=== PATIENT | male | born 1940 | race Caucasian/White ===

== ENCOUNTER 2022-11-14 12:44 | Inpatient (IN) | payer MEDICARE, BC, SELFPAY ==
[2022-11-14] VITALS (22 sets, daily range): BP systolic 119–162; BP diastolic 67–87; PULSE 72–115; RESP 16–36; TEMP 36.4–38.8; O2SAT 95–100; BMI 31.6; BMI 35.2
--- NOTE | ~2022-11-14 | CT_ITS ---
EXAMINATION: CTA brain carotid DATE: 11/15/2022 11:51 INDICATION: Left hemiparesis. Encephalopathy. Headache. TECHNIQUE: Computed tomographic angiography (CTA) of the head was performed without and with 100 mL O mnipaque-350 intravenous contrast. CTA of the neck was performed with intravenous contrast. Automated exposure control and iterative reconstruction technique were employed. The dose-length product was 1 950.80 mGy-cm. Maximum intensity projection and volume rendered 3D-reconstructions were created by anali jackson technologist on a separate workstation. COMPARISON: Head CT 11/14/2022 FINDINGS: HEAD CTA: There are scattered areas of low attenuation in the cerebral white matter. There is no intr acranial hemorrhage, acute infarction, or abnormal intracranial mass lesion. The ventricles are filemon l in size. The orbits are normal. There is mucosal thickening in the paranasal sinuses. The mastoid a ir cells are normal. The vertebral arteries are codominant. There is no significant stenosis of basil ar artery or the posterior cerebral arteries. There is no significant stenosis of the intracranial in ternal carotid arteries or anterior or middle cerebral arteries. Anterior communicating artery is nor mal. Posterior communicating arteries are normal. There is no aneurysm. NECK CTA: There is elevation of left hemidiaphragm. There is mild atelectasis in the lungs. A calcifi ed left hilar lymph nodes are consistent with old granulomatous disease. There are no pathologically enlarged lymph nodes. There are nodules in the thyroid measuring up to 5 mm, likely not clinically si gnificant. There is no significant stenosis of the vertebral arteries. There is plaque in the proxima l internal carotid arteries. There is 9% stenosis of the proximal right internal carotid artery relat saritha to normal distal artery lumen diameter (NASCET criteria). There is 0% stenosis of the proximal le ft internal carotid artery relative to normal distal artery lumen diameter. There is severe cervical spondylosis. IMPRESSION: 1. Mild nonspecific cerebral white matter disease, which likely represents chronic small vessel ische bryan disease. 2. No aneurysm or significant intracranial arterial stenosis. 3. 9% stenosis of the proximal right internal carotid artery relative to normal distal artery lumen d iameter (NASCET criteria). 4. 0% stenosis of the proximal left internal carotid artery relative to normal distal artery lumen di ameter. Reviewed, dictated and finalized at location A. IMPRESSION: 1. Mild nonspecific cerebral white matter disease, which likely represents [place] small vessel ischemic disease. 2. No aneurysm or significant intracranial arterial stenosis. 3. 9% stenosis of the proximal right internal carotid artery relative to normal distal artery lumen diameter (NASCET criteria). 4. 0% stenosis of the proximal left internal carotid artery relative to normal distal artery lumen diameter.
--- NOTE | ~2022-11-14 | CT_ITS ---
EXAMINATION: CT brain wo con INDICATION: Headache COMPARISON: None TECHNIQUE: Standard unenhanced head CT. The dose-length product (DLP) was 1210.67 mGy-cm. The mA was adjusted according to patient size. Iterative reconstruction technique was employed. FINDINGS: No acute intraparenchymal hemorrhage. No evidence of mass lesion. No evidence of acute infa rction. A small area of encephalomalacia in the right occipital lobe is consistent with prior infarct . There is mild periventricular and subcortical hypodensity probably related to small vessel ischemic disease. There is mild prominence of the sulci and ventricles related to cerebral atrophy. Intracran ial calcified cerebral atherosclerosis is noted. No extra-axial collections. No mass effect or midlin e shift. The orbits and soft tissues are unremarkable. There is a polyp or mucous retention cyst of t he right sphenoid sinus. There is mild mucosal thickening of the ethmoidal air cells IMPRESSION: 1. No acute intracranial abnormality. 2. Age related findings. Reviewed, dictated and finalized at location A.
--- NOTE | ~2022-11-14 | XR_ITS ---
XR chest 1V 11/14/2022 13:43 Indication: Headache. History of CVA. Procedure: AP view of the chest Comparison: No prior studies for comparison. Findings: Elevated left diaphragm. Right basilar atelectasis. No focal pneumonia, edema, significant effusion or pneumothorax. There are postoperative changes of the right shoulder. Impression: 1: Right basilar atelectasis. 2: Elevated left diaphragm, suspicious for phrenic nerve paralysis. Reviewed, dictated and finalized at location L. Impression: 1: Right basilar atelectasis. 2: Elevated left diaphragm, suspicious for phrenic nerve paralysis.
--- NOTE | ~2022-11-14 | MR_ITS ---
EXAMINATION: MR brain/brain stem wo/w con DATE: 11/15/2022 11:17 INDICATION: Encephalopathy. TECHNIQUE: Magnetic resonance imaging (MRI) of the brain and brainstem was performed without and with 18 mL MultiHance intravenous contrast. COMPARISON: Head CT 11/14/2022 FINDINGS: There are scattered areas of nonspecific increased T2-weighted signal intensity in the cere bral white matter. There are old blood products in left thalamus and posterior limb left internal cap mary. There is no acute infarction or abnormal intracranial mass lesion. The ventricles are normal in size. The orbits are normal. There is mucosal thickening in the paranasal sinuses. The mastoid air c ells are normal. IMPRESSION: 1. Mild nonspecific cerebral white matter disease, which likely represents chronic small vessel ische bryan disease. 2. Old blood products in left thalamus and posterior limb left internal capsule. Reviewed, dictated and finalized at location A. IMPRESSION: 1. 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 2. Old blood products in left thalamus and posterior limb left internal capsule .
--- NOTE | 2022-11-14 13:02 | ECG_ITS ---
Measurements Intervals [place] Rate: 72 P: -3 MN: 172 QRS: 14 QRSD: 94 T: 46 QT: 392 QTc: 431 Interpretive Statements SINUS RHYTHM NO PREVIOUS ECG AVAILABLE FOR COMPARISON Electronically Signed On 11-14-2022 15:41:20 CDT by Ghislaine Robertson M.D.
[2022-11-14 13:16] LABS: Basophils Percent Auto 0.4 % (0.2-1.2); Eosinophils Absolute Auto 0.2 K/mm3 (0-0.3); Eosinophils Percent Auto 2.2 % (0-4.4); Hematocrit 35.7 % (42.0-52.0); Hemoglobin 11.8 g/dL (14.0-18.0); Immature Granulocyte Absolute 0.02 K/mm3 (0.00-0.031); Immature Granulocyte Percent A 0.2 % (0-0.5); Lymphocytes Absolute Auto 1.79 K/mm3 (0.9-3.2); Lymphocytes Percent Auto 19.4 % (18.3-44.2); Mean Corpuscular HGB Conc 33.1 g/dl (32-36); Mean Corpuscular Hemoglobin 28.2 pg (26-34); Mean Corpuscular Volume 85.4 fl (80-100); Mean Platelet Volume 11.4 fl (7.4-10.4); Monocytes Absolute Auto 0.7 K/mm3 (0.1-0.6); Monocytes Percent Auto 7.8 % (2.6-8.5); Neutrophils Absolute Auto 6.5 K/mm3 (1.3-6.7); Platelet Count Result 169 k/mm3 (150-375); Red Blood Count 4.18 M/mm3 (4.6-6.20); Red Cell Distribution Width 14.2 % (11.5-14.5); White Blood Count 9.2 K/mm3 (4.5-10.0)
[2022-11-14 13:29] LABS: INR 2.7
[2022-11-14 13:30] LABS: Partial Thromboplastin Time 38.4 SECONDS (22.3-36.8)
[2022-11-14 13:31] LABS: Alanine Aminotransferase 26 U/L (6-50); Albumin Level 3.9 g/dL (3.5-5.1); Alkaline Phosphatase 57 U/L (38-126); Anion Gap 4 mmol/L (8-16); Aspartate Amino Transferase 28 U/L (17-59); Bilirubin,Total 0.7 mg/dL (0.2-1.3); Blood Urea Nitrogen 19 mg/dL (9-20); Calcium 9.6 mg/dL (8.4-10.2); Carbon Dioxide 28 mmol/L (22-30); Chloride 97 mmol/L (98-107); Estimated CRCL calculation 65 ml/min; Estimated Glomerular Filt Rate > 60; Glucose 91 mg/dL (65-110); Potassium 4.1 mmol/L (3.4-5.0); Sodium 129 mmol/L (137-145)
[2022-11-14 13:42] LABS: Troponin I < 0.012 ng/mL (0.000-0.034)
[2022-11-14 15:10] LABS: Appearance Urine Clear (Clear); Bilirubin Urine Negative (Negative); Blood Urine Negative (Negative); Color Urine Yellow (Yellow); Glucose Urine UA Negative (Negative); Ketones Urine Negative (Negative); Leukocyte Esterase Ur Negative LEU/UL (Negative); Nitrate Urine Negative (Negative); Protein Urine Negative (Negative); Specific Grav Ur 1.012 (1.001-1.035)
[2022-11-14 15:14] LABS: Add Urine Microscopic? NO
[2022-11-14 15:35] LABS: Glucose Point of Care 99 mg/dl (65-105)
--- NOTE | 2022-11-14 16:15 | ED.GENADULT ---
HPI - General Adult General Chief complaint: Headache <Christian Gooden PA-C - Last Filed: 11/14/22 19:38> Stated complaint: bess <Christian Gooden PA-C - Last Filed: 11/14/22 19:38> Time Seen by Provider: 11/14/22 14:56 <Christian Gooden PA-C - Last Filed: 11/14/22 19:38> Source: patient and family <Christian Gooden PA-C - Last Filed: 11/14/22 19:38> Mode of arrival: EMS <Christian Gooden PA-C - Last Filed: 11/14/22 19:38> Limitations: altered mental status <Christian Gooden PA-C - Last Filed: 11/14/22 19:38> History of Present Illness HPI narrative: This is a an 82-year-old male with PMH of ICH, 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 [facility] According to family members who are present he was recently admitted there for encephalopathy and they thought it to be due to a severe UTI. Family states that he has been doing well with rehab and they last saw him normal last night. States he took his entire Levaquin course. They state that he has history of carotid stenosis but has not had any carotid endarterectomy. They state he last received an MRI last week at [facility] whenever this first event happened. They states today very similar and they were concerned for another infection. They state as he has been laying here in the bed he seems to be slowly improving but is more anxious/distracted/fidgeting. Family deny any speech changes, facial droop but they do think he seems to be somewhat confused right now. Patient reports that he has a headache. He states it is frontal in nature. He reports that had gradual onset but has not been getting any better. Denies any numbness or weakness. <Christian Gooden PA-C - Last Filed: 11/14/22 19:38> Related Data Home medications: Home Medications Medication Instructions Recorded Confirmed cholecalciferol (vitamin D3) 100 mcg PO DAILY 11/08/22 11/08/22 finasteride 5 mg tablet (Proscar) 5 mg PO HS 11/08/22 11/08/22 fluticasone propionate 50 2 spray intranasal DAILY 11/08/22 11/08/22 mcg/actuation nasal spray,suspension (Flonase Allergy Relief) furosemide 20 mg tablet 40 mg PO [id number] 11/08/22 11/08/22 metformin 500 mg tablet 1,000 mg PO BIDWM 11/08/22 11/08/22 tamsulosin 0.4 mg capsule 0.4 mg PO HS 11/08/22 11/08/22 warfarin 2 mg tablet 1.5 mg PO DAILY 11/08/22 11/08/22 <Christian Gooden PA-C - Last Filed: 11/14/22 19:38> Allergies/adverse reactions: Allergies Allergy/AdvReac Type Severity Reaction Status Date / Time amlodipine [From Lotrel] Allergy Severe Anaphylaxis Verified 11/30/20 12:42 benazepril [From Lotrel] Allergy Severe Anaphylaxis Verified 11/30/20 12:42 cefuroxime [From Ceftin] Allergy Mild Itching Verified 11/30/20 12:42 DOMINGO Inhibitors AdvReac Cough Verified 11/08/22 16:51 <Christian Gooden PA-C - Last Filed: 11/14/22 19:38> Review of Systems Review of Systems: All systems as dictated in HPI <Christian Gooden PA-C - Last Filed: 11/14/22 19:38> [facility] Past Medical History Medical History: Medical History (Updated 11/14/22 @ 19:11 by Christian Gooden PA-C) BPH (benign prostatic hyperplasia) DVT, bilateral lower limbs Dyslipidemia Hypertension Obstructive sleep apnea Presence of IVC filter Right hemiplegia <Christian Gooden PA-C - Last Filed: 11/14/22 19:38> Social History Social History: Social History (System 11/30/20 @ 12:42 by Leonarda Romo) Social History: patient lives with his in a 1 level home with a basement. Patient has 1 step to enter. is able to care for her . Patient has no adaptive devices. Smoking status: Never smoker Second hand tobacco smoke exposure: No Alcohol intake: never Substance use: never Substance use type: does not use Spiritual care concerns: No <Christian Gooden PA-C - Last Filed: 11/14/22 19:38> Exam Narrative: GENERAL: Well-appearing,
[2022-11-14] MEDS: MORPHINE SULFATE (*CRX) 4 MG/ML INJ 2 MG IV PUSH (16:31)
[2022-11-14] MEDS: SODIUM CHLORIDE 0.9% IV 1,000 ML 999 ML IV CONT (16:31)
[2022-11-14] MEDS: HALOPERIDOL LACTATE 5 MG/ML VIAL 2 MG IM (19:35)
[2022-11-14] MEDS: OLANZapine 5 MG, WATER, STERILE FOR INJECTION 2.1 ML IM (20:24)
[2022-11-14] MEDS: SODIUM CHLORIDE 0.9% IV 1,000 ML 75 ML IV CONT (20:34)
[2022-11-14 20:56] LABS: Influenza A QL RT-PCR Negative (Negative); Influenza B QL RT-PCR Negative (Negative); RSV RNA, RT-PCR Negative (Negative); SARS-CoV-2 RNA PCR Negative (Negative)
--- NOTE | 2022-11-14 21:17 | ADMGEN ---
This patient, Jerrod Miles, was admitted to Medical Room 255-. Patient/family oriented to hospital policies and general routines including ID bracelet, bed and alarms, visiting hours, pain management, procedures, bathroom and other care routines, personal items, smoking policy, room service/diet, and visiting hours. Information on how to activate the Rapid Response Team has been discussed. Patient/Family are encouraged to report perceived risks to care and to ask questions if they do not understand what they are told or what they should do.
[2022-11-15] VITALS (13 sets, daily range): BP systolic 123–143; BP diastolic 55–64; PULSE 59–98; RESP 16–21; TEMP 36.1–36.8; O2SAT 94–100
--- NOTE | 2022-11-15 00:07 | PM.IMHP ---
H&P: HPI History of Present Illness Date/Time: 11/15/22 00:07 Chief Complaint: Altered mental status Narrative: This is an 82-year-old male with past medical history significant for dyslipidemia, atrial fibrillation, rate controlled anticoagulated, type 2 diabetes mellitus, DVT, benign prostatic hyperplasia, IVC filter, right hemiplegia, obstructive sleep apnea patient comes from [facility] sent over due to altered mental status most of the history has been obtained upon reviewing medical records patient is obtunded and confused unable to give any history that is meaningful or contributing to current disease process. According to records had concluded course of Levaquin and recent history of intracranial hemorrhage. Preliminary workup was significant for sodium of 129. EXAMINATION: CT brain wo con ? INDICATION: Headache ? COMPARISON: None TECHNIQUE: Standard unenhanced head CT. The dose-length product (DLP) was 1210.67 mGy-cm. The mA was adjusted according to patient size. Iterative reconstruction technique was employed. ? FINDINGS: No acute intraparenchymal hemorrhage. No evidence of mass lesion. No evidence of acute infarction. A small area of encephalomalacia in the right occipital lobe is consistent with prior infarct. There is mild periventricular and subcortical hypodensity probably related to small vessel ischemic disease. There is mild prominence of the sulci and ventricles related to cerebral atrophy. Intracranial calcified cerebral atherosclerosis is noted. No extra-axial collections. No mass effect or midline shift. The orbits and soft tissues are unremarkable. There is a polyp or mucous retention cyst of the right sphenoid sinus. There is mild mucosal thickening of the ethmoidal air cells IMPRESSION: 1. No acute intracranial abnormality. 2. Age related findings. XR chest 1V 11/14/2022 13:43 Indication: Headache. History of CVA. Procedure: AP view of the chest Comparison: No prior studies for comparison. Findings: Elevated left diaphragm. Right basilar atelectasis. No focal pneumonia, edema, significant effusion or pneumothorax. There are postoperative changes of the right shoulder. Impression: 1: Right basilar atelectasis. 2: Elevated left diaphragm, suspicious for phrenic nerve paralysis. Review of Systems Review of Systems: ROS unobtainable: Yes unobtainable due to mental status ( obtundation) [facility] Past Medical History Medical History BPH (benign prostatic hyperplasia) DVT, bilateral lower limbs Dyslipidemia Hypertension Obesity Obstructive sleep apnea Presence of IVC filter Right hemiplegia Social History Social History Social History: patient lives with his in a 1 level home with a basement. Patient has 1 step to enter. is able to care for her . Patient has no adaptive devices. Smoking status: Never smoker Second hand tobacco smoke exposure: No Alcohol intake: never Substance use: former Substance use type: does not use Lack of Transportation: No Lack of Food: Never True Current Housing: I Have Housing Concerned About Future Housing: No Difficulty Paying Gas/Electric Bills: No Difficulty Paying for Meds: No Currently Unemployed: No Education: High School Diploma/GED Difficulty w/ Childcare or Family Care: No Spiritual care concerns: Yes Meds Home Medications and Allergies Home Medications Medication Instructions Recorded Confirmed Type metoprolol tartrate 50 mg tablet 50 mg PO Q12HR #60 tabs 12/05/20 11/14/22 Rx multivitamin with folic acid 400 1 tablet PO QAM #0 tabs 12/05/20 11/14/22 Rx mcg tablet (Thera) cholecalciferol (vitamin D3) 5,000 units PO DAILY 11/08/22 11/14/22 History finasteride 5 mg tablet (Proscar) 5 mg PO HS 11/08/22 11/14/22 History fluticasone propionate 50 2 spray intranasa
[2022-11-15 05:31] LABS: Basophils Percent Auto 0.6 % (0.2-1.2); Eosinophils Absolute Auto 0.1 K/mm3 (0-0.3); Hematocrit 31.2 % (42.0-52.0); Hemoglobin 10.5 g/dL (14.0-18.0); Immature Granulocyte Absolute 0.01 K/mm3 (0.00-0.031); Immature Granulocyte Percent A 0.1 % (0-0.5); Lymphocytes Absolute Auto 2.15 K/mm3 (0.9-3.2); Lymphocytes Percent Auto 31.3 % (18.3-44.2); Mean Corpuscular HGB Conc 33.7 g/dl (32-36); Mean Corpuscular Hemoglobin 28.3 pg (26-34); Mean Corpuscular Volume 84.1 fl (80-100); Mean Platelet Volume 11.3 fl (7.4-10.4); Monocytes Absolute Auto 0.9 K/mm3 (0.1-0.6); Monocytes Percent Auto 13.2 % (2.6-8.5); Neutrophils Absolute Auto 3.6 K/mm3 (1.3-6.7); Neutrophils Percent Auto 52.8 % (45.5-73.1); Platelet Count Result 163 k/mm3 (150-375); Red Blood Count 3.71 M/mm3 (4.6-6.20); Red Cell Distribution Width 14.2 % (11.5-14.5); White Blood Count 6.9 K/mm3 (4.5-10.0)
[2022-11-15 05:38] LABS: Anion Gap 3 mmol/L (8-16); Blood Urea Nitrogen 15 mg/dL (9-20); Calcium 8.7 mg/dL (8.4-10.2); Carbon Dioxide 28 mmol/L (22-30); Chloride 101 mmol/L (98-107); Estimated CRCL calculation 67 ml/min; Estimated Glomerular Filt Rate > 60; Glucose 97 mg/dL (65-110); Potassium 3.3 mmol/L (3.4-5.0); Sodium 132 mmol/L (137-145)
--- NOTE | 2022-11-15 06:18 | PC.NURSE ---
reviewed and agree with all charting and documentation by trell chin
[2022-11-15 08:48] LABS: Glucose Point of Care 84 mg/dl (65-105)
--- NOTE | 2022-11-15 09:00 | P.PNIM_ITS ---
Progress Note: A&P Assessment and Plan (1) Acute metabolic encephalopathy: Code(s): G93.41 - Metabolic encephalopathy Status: Acute Assessment and Plan: * Presented to the ED from rehab for acute confusion and encephalopathy * Recently treated for UTI with levaquin which has been completed * CT of the brain no acute finding * CTA of the brain 9% of the right and 0% of the left, no intracranial findings * MRI of the brain old blood products in left thalamus and posterior limb left internal capsule * UA appears non infectious * Notable fever, tachycardia, and tachypnea * WBC stable 6.9 * Neuro consulted * LP ordered most likely for tomorrow with INR of 2.8. Coumadin on hold * Acyclovir ordered (2) Presence of IVC filter: Code(s): Z95.828 - Presence of other vascular implants and grafts Status: Acute Assessment and Plan: * Present since ICH noted about 2 years ago * Noted to still have multiple clots in the bilateral lower extremities * Continue Coumadin for now (3) Hyponatremia: Code(s): E87.1 - Hypo-osmolality and hyponatremia Status: Acute Assessment and Plan: * Na 129 upon arrival * Currently 132 * Could be contributing to the encephalopathy * Continue IV fluids for now * Continue to trend (4) Obstructive sleep apnea: Code(s): G47.33 - Obstructive sleep apnea (adult) (pediatric) Status: Acute Assessment and Plan: * Continue home CPAP with home setting (5) Diabetes: Qualifiers: Diabetes mellitus complication status: without complication Diabetes mellitus penitentiary insulin use: without ad terminal makeup operator use Diabetes mellitus type: type 2 Qualified Code(s): E11.9 - Type 2 diabetes mellitus without complications Code(s): E11.9 - Type 2 diabetes mellitus without complications Status: Acute Assessment and Plan: * Current glucose 97 * accu cheks AC/HS * ISS * Continue to trend glucose * stable * Adjust therapy as indicated (6) Hypertension: Qualifiers: Hypertension type: primary hypertension Qualified Code(s): I10 - Essential (primary) hypertension Code(s): I10 - Essential (primary) hypertension Status: Acute Assessment and Plan: * BP is 143/55 * Continue home metoprolol * Lasix currently on hold * trend BP * adjust therapy as indicated (7) BPH (benign prostatic hyperplasia): Qualifiers: Lower urinary tract symptom presence: symptoms absent Qualified Code(s): N40.0 - Benign prostatic hyperplasia without lower urinary tract symptoms Code(s): N40.0 - Benign prostatic hyperplasia without lower urinary tract symptoms Status: Acute Assessment and Plan: * Continue home tamsulosin * trend urine output * Stable (8) SIRS (systemic inflammatory response syndrome): Code(s): R65.10 - Systemic inflammatory response syndrome (SIRS) of non-infectious origin without acute organ dysfunction Status: Acute Assessment and Plan: * Fevers noted 101.4, tachycardia 100-115, tachypnea 20s * blood cultures ordered * UA appears non infectious * IV fluids continued * Trend vital sign (9) Afib: Qualifiers: Atrial fibri
--- NOTE | 2022-11-15 09:00 | PM.IMPN ---
Progress Note: A&P Assessment and Plan (1) Acute metabolic encephalopathy: Code(s): G93.41 - Metabolic encephalopathy Status: Acute Assessment and Plan: Presented to the ED from rehab for acute confusion and encephalopathy Recently treated for UTI with levaquin which has been completed CT of the brain no acute finding CTA of the brain 9% of the right and 0% of the left, no intracranial findings MRI of the brain old blood products in left thalamus and posterior limb left internal capsule UA appears non infectious Notable fever, tachycardia, and tachypnea WBC stable 6.9 Neuro consulted LP ordered most likely for tomorrow with INR of 2.8. Coumadin on hold Acyclovir ordered (2) Presence of IVC filter: Code(s): Z95.828 - Presence of other vascular implants and grafts Status: Acute Assessment and Plan: Present since ICH noted about 2 years ago Noted to still have multiple clots in the bilateral lower extremities Continue Coumadin for now (3) Hyponatremia: Code(s): E87.1 - Hypo-osmolality and hyponatremia Status: Acute Assessment and Plan: Na 129 upon arrival Currently 132 Could be contributing to the encephalopathy Continue IV fluids for now Continue to trend (4) Obstructive sleep apnea: Code(s): G47.33 - Obstructive sleep apnea (adult) (pediatric) Status: Acute Assessment and Plan: Continue home CPAP with home setting (5) Diabetes: Qualifiers: Diabetes mellitus complication status: without complication 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 intermediate use Diabetes mellitus type: type 2 Qualified Code(s): E11.9 - Type 2 diabetes mellitus without complications Code(s): E11.9 - Type 2 diabetes mellitus without complications Status: Acute Assessment and Plan: Current glucose 97 accu cheks AC/HS ISS Continue to trend glucose stable Adjust therapy as indicated (6) Hypertension: Qualifiers: Hypertension type: primary hypertension Qualified Code(s): I10 - Essential (primary) hypertension Code(s): I10 - Essential (primary) hypertension Status: Acute Assessment and Plan: BP is 143/55 Continue home metoprolol Lasix currently on hold trend BP adjust therapy as indicated (7) BPH (benign prostatic hyperplasia): Qualifiers: Lower urinary tract symptom presence: symptoms absent Qualified Code(s): N40.0 - Benign prostatic hyperplasia without lower urinary tract symptoms Code(s): N40.0 - Benign prostatic hyperplasia without lower urinary tract symptoms Status: Acute Assessment and Plan: Continue home tamsulosin trend urine output Stable (8) SIRS (systemic inflammatory response syndrome): Code(s): R65.10 - Systemic inflammatory response syndrome (SIRS) of non-infectious origin without acute organ dysfunction Status: Acute Assessment and Plan: Fevers noted 101.4, tachycardia 100-115, tachypnea 20s blood cultures ordered UA appears non infectious IV fluids continued Trend vital sign (9) Afib: Qualifiers: Atrial fibrillation type: unspecified chronic Qualified Code(s): I48.20 - Chronic atrial fibrillation, unspecified Code(s): I48.91 - Unspecified atrial fibrillation Status: Acute Assessment and Plan: Currently in afib Rate is controlled Continue metoprolol Hold Coumadin for now to get LP in the am Tele monitor continued Time Spent With Patient Time: 56 minutes total patient care 36 minutes spent with family Time with patient: Greater than 35 minutes Subjective Date/time seen: 11/15/22899 Interval history: 11/15/22899 Patient is currently lying in bed. Patient is alert oriented x3. Family wa
--- NOTE | 2022-11-15 09:03 | WPDNEURCNPN ---
Assessment and Plan Assessment and plan (1) Encephalopathy: Code(s): G93.40 - Encephalopathy, unspecified Status: Acute (2) SIRS (systemic inflammatory response syndrome): Code(s): R65.10 - Systemic inflammatory response syndrome (SIRS) of non-infectious origin without acute organ dysfunction Status: Acute (3) Carotid arterial disease: Code(s): I77.9 - Disorder of arteries and arterioles, unspecified Status: Acute (4) Hypertension: Qualifiers: Hypertension type: primary hypertension Qualified Code(s): I10 - Essential (primary) hypertension Code(s): I10 - Essential (primary) hypertension Status: Acute (5) Dyslipidemia: Code(s): E78.5 - Hyperlipidemia, unspecified Status: Acute (6) Diabetes: Qualifiers: Diabetes mellitus complication status: without complication Diabetes mellitus long-term insulin use: without exterminator helper termite use Diabetes mellitus type: type 2 Qualified Code(s): E11.9 - Type 2 diabetes mellitus without complications Code(s): E11.9 - Type 2 diabetes mellitus without complications Status: Acute Plan Jerrod Miles is a 82 year old male with a history of HTN, HLD, DVT with IVC filter, on warfarin presenting from rehab for altered mental status. Also with headache and fever. There is no obvious cause of the fever. Therefore, will need to evaluate for meningitis/encephalitis. MRI brain negative for acute stroke. - Start empiric acyclovir and antibiotics (ampicillin, vancomycin, ceftriaxone) - Recommend LP with CSF studies (please include HSV PCR) when able Consult date: 11/15/22 Reason for consult: altered mental status HPI: Jerrod Miles is a 82 year old male with a history of HTN, HLD, DVT with IVC filter, on warfarin presenting from rehab for altered mental status. Patient was recently admitted to [place] for UTI and was treated with Levaquin. While at rehab, he started complaining of headache on the day of presentation and was notably confused. He was easily distracted and appeared to have difficulty with coordination. CT head was unrevealing. Lab work was significant for hyponatremia of 129, and UA was unrevealing. INR is therapeutic. Patient did develop a fever during admission, up to 101.8. Blood cultures were obtained. He is not currently on any antibiotics. MRI brain has been done, the report is pending. Patient's INR is 2.8 today so he cannot have LP done yet. Warfarin being held by hospitalist team. Plan to start empiric antibiotics and acyclovir. He received a dose of Ativan for the imaging. Review of Systems Review of Systems: ROS unobtainable: Yes unobtainable due to medical condition and unobtainable due to mental status PMFSH Past Medical History Medical History BPH (benign prostatic hyperplasia) DVT, bilateral lower limbs Dyslipidemia Hypertension Obesity Obstructive sleep apnea Presence of IVC filter Right hemiplegia Social History Social History Social History: patient lives with his in a 1 level home with a basement. Patient has 1 step to enter. is able to care for her . Patient has no adaptive devices. Smoking status: Never smoker Second hand tobacco smoke exposure: No Alcohol intake: never Substance use: former Substance use type: does not use Lack of Transportation: No Lack of Food: Never True Current Housing: I Have Housing Concerned About Future Housing: No Difficulty Paying Gas/Electric Bills: No Difficulty Paying for Meds: No Currently Unemployed: No Education: High School Diploma/GED Difficulty w/ Childcare or Family Care: No Spiritual care concerns: Yes Meds Home Medications and Allergies Home Medications Medication Instructions Recorded Confirmed Type metoprolol tartrate 50 mg tablet 50 mg PO Q12HR #60 ta
[2022-11-15] MEDS: CHOLECALCIFEROL 1,000 UNITS TABLET 5000 UNITS PO (09:45)
[2022-11-15] MEDS: METOPROLOL TARTRATE 50 MG TAB PO ×2 (09:45→20:40)
[2022-11-15] MEDS: TAMSULOSIN HCL 0.4 MG CAPSULE PO (09:45)
[2022-11-15] MEDS: POTASSIUM CHLORIDE 20 MEQ ER TABLET 40 MEQ PO (09:45)
[2022-11-15] MEDS: FLUTICASONE PROPIONATE 0.05% NA SPR 16 GM BTL (*BKC) 2 SPRAY NASAL (09:46)
[2022-11-15] MEDS: LORazepam INJ (*CRX) 2 MG/ML VIAL 0.5 MG IV PUSH (10:28)
[2022-11-15 12:02] LABS: Glucose Point of Care 126 mg/dl (65-105)
[2022-11-15] MEDS: ACYCLOVIR SODIUM IVPB 900 MG in DEXTROSE 5% IN WATER 250 ML 268 MG IVPB (12:04)
[2022-11-15] MEDS: AMPICILLIN 2 GM/NS 100 ML 2 GM/100 ML BAG IVPB ×2 (14:11→20:44)
[2022-11-15] MEDS: cefTRIAXone 2 GM/NS 100 ML 2 GM/100 ML BAG IVPB (14:43)
[2022-11-15] MEDS: VANCOMYCIN 1,250 MG/NS 250 ML 1,250 MG/250 ML BAG 166.67 MG IVPB (15:14)
[2022-11-15 17:12] LABS: Glucose Point of Care 164 mg/dl (65-105)
[2022-11-15] MEDS: VANCOMYCIN 1,000 MG/NS 250 ML 1,000 MG/250 ML BAG 250 MG IVPB (17:38)
[2022-11-15] MEDS: FINASTERIDE 5 MG TABLET PO (20:40)
[2022-11-15 21:35] LABS: Glucose Point of Care 125 mg/dl (65-105)
[2022-11-16] VITALS (11 sets, daily range): BP systolic 138–148; BP diastolic 55–83; PULSE 67–88; RESP 16–18; TEMP 36.3–36.9; O2SAT 95–100
[2022-11-16] MEDS: AMPICILLIN 2 GM/NS 100 ML 2 GM/100 ML BAG IVPB ×6 (00:49→19:59)
[2022-11-16] MEDS: cefTRIAXone 2 GM/NS 100 ML 2 GM/100 ML BAG IVPB ×2 (01:20→14:36)
--- NOTE | 2022-11-16 05:41 | PCRCNOTE ---
Unable to get a sputum sample after given pt 3% sodium chloride. Pt has a strong nonproductive cough
[2022-11-16 06:07] LABS: Basophils Percent Auto 0.4 % (0.2-1.2); Eosinophils Absolute Auto 0.3 K/mm3 (0-0.3); Eosinophils Percent Auto 4.4 % (0-4.4); Hematocrit 33.4 % (42.0-52.0); Hemoglobin 11.1 g/dL (14.0-18.0); Immature Granulocyte Absolute 0.02 K/mm3 (0.00-0.031); Immature Granulocyte Percent A 0.3 % (0-0.5); Lymphocytes Absolute Auto 1.45 K/mm3 (0.9-3.2); Lymphocytes Percent Auto 19.5 % (18.3-44.2); Mean Corpuscular HGB Conc 33.2 g/dl (32-36); Mean Corpuscular Volume 84.1 fl (80-100); Mean Platelet Volume 11.5 fl (7.4-10.4); Monocytes Absolute Auto 0.8 K/mm3 (0.1-0.6); Monocytes Percent Auto 10.1 % (2.6-8.5); Neutrophils Absolute Auto 4.9 K/mm3 (1.3-6.7); Neutrophils Percent Auto 65.3 % (45.5-73.1); Platelet Count Result 168 k/mm3 (150-375); Red Blood Count 3.97 M/mm3 (4.6-6.20); Red Cell Distribution Width 14.3 % (11.5-14.5); White Blood Count 7.4 K/mm3 (4.5-10.0)
[2022-11-16 06:17] LABS: INR 2.6; Prothrombin Time 29.8 Seconds (11.1-14.7)
[2022-11-16 06:21] LABS: Alanine Aminotransferase 23 U/L (6-50); Albumin Level 3.2 g/dL (3.5-5.1); Alkaline Phosphatase 49 U/L (38-126); Anion Gap 3 mmol/L (8-16); Aspartate Amino Transferase 29 U/L (17-59); Bilirubin,Total 0.6 mg/dL (0.2-1.3); Blood Urea Nitrogen 13 mg/dL (9-20); Calcium 8.8 mg/dL (8.4-10.2); Carbon Dioxide 26 mmol/L (22-30); Chloride 103 mmol/L (98-107); Estimated CRCL calculation 67 ml/min; Estimated Glomerular Filt Rate > 60; Glucose 123 mg/dL (65-110); Magnesium 1.6 mg/dL (1.6-2.3); Potassium 3.3 mmol/L (3.4-5.0); Sodium 132 mmol/L (137-145)
[2022-11-16] MEDS: CHOLECALCIFEROL 1,000 UNITS TABLET 5000 UNITS PO (08:25)
[2022-11-16] MEDS: TAMSULOSIN HCL 0.4 MG CAPSULE PO (08:25)
[2022-11-16] MEDS: METOPROLOL TARTRATE 50 MG TAB PO ×2 (08:25→20:00)
[2022-11-16 09:03] LABS: Glucose Point of Care 112 mg/dl (65-105)
[2022-11-16 12:04] LABS: Glucose Point of Care 204 mg/dl (65-105)
--- NOTE | 2022-11-16 12:21 | PM.IMPN ---
Progress Note: A&P Assessment and Plan (1) Encephalopathy: Code(s): G93.40 - Encephalopathy, unspecified Status: Acute Assessment and Plan: Etiology unclear: Drug vs infection. TIA or seizure much less likely. 11/16/22: Dramatic improvement on acyclovir, vancomycin, ceftriaxone, ampicillin. Discussed with patient and family at bedside. 11/16/22: INR 2.6 is too high to perform LP. Discussed possible switch to Eliquis post procedure. (2) Presence of IVC filter: Code(s): Z95.828 - Presence of other vascular implants and grafts Status: Acute Assessment and Plan: Continue to monitor (3) Hyponatremia: Code(s): E87.1 - Hypo-osmolality and hyponatremia Status: Acute Assessment and Plan: 11/14/22: 129, 11/16/22: 132 Continue to hold furosemide (4) Right hemiplegia: Code(s): G81.91 - Hemiplegia, unspecified affecting right dominant side Status: Acute Assessment and Plan: PT/OT (5) DVT, bilateral lower limbs: Code(s): I82.403 - Acute embolism and thrombosis of unspecified deep veins of lower extremity, bilateral Status: Acute Assessment and Plan: Warfarin on hold for possible LP (6) Obstructive sleep apnea: Code(s): G47.33 - Obstructive sleep apnea (adult) (pediatric) Status: Acute Assessment and Plan: Continue CPAP (7) Diabetes: Qualifiers: Diabetes mellitus type: type 2 Diabetes mellitus wall worker insulin use: without wall worker use Diabetes mellitus complication status: without complication Qualified Code(s): E11.9 - Type 2 diabetes mellitus without complications Code(s): E11.9 - Type 2 diabetes mellitus without complications Status: Acute Assessment and Plan: 11/16/22: Resumed metformin and initiated SSI. (8) Hypertension: Qualifiers: Hypertension type: primary hypertension Qualified Code(s): I10 - Essential (primary) hypertension Code(s): I10 - Essential (primary) hypertension Status: Acute Assessment and Plan: Monitor BP off furosemide 11/16/22 controlled (9) Lymphedema: Code(s): I89.0 - Lymphedema, not elsewhere classified Status: Acute Assessment and Plan: Compression stockings to LE's (10) BPH (benign prostatic hyperplasia): Qualifiers: Lower urinary tract symptom presence: symptoms absent Qualified Code(s): N40.0 - Benign prostatic hyperplasia without lower urinary tract symptoms Code(s): N40.0 - Benign prostatic hyperplasia without lower urinary tract symptoms Status: Acute Assessment and Plan: Continue tamsulosin Subjective Date/time seen: 11/16/22 12:21 Interval history: Much more alert and feeling much better today. Tolerated diet. Denied chest pain, shortness of breath, headache, abdominal pain, extremity pain, dizziness, abnormal bleeding, focal weakness. Exam Narrative: HEENT: EOMI, PERRL, sclerae nonicteric, pharyngeal mucosa pink and intact NECK: No JVD, adenopathy, or thyromegaly. Supple. CHEST: Clear to auscultation. Normal effort. HEART: NL S1/S2, regular, no murmur ABDOMEN: BS+, soft, nontender, no mass, no bruits EXTREMITIES: No cyanosis, edema, or clubbing NEUROLOGIC: CN intact and symmetric to inspection. DTRs intact at biceps triceps knees, trace at ankles, Babinski's downgoing. [id number] intact. MUSCULOSKELETAL: Tone and strength symmetric 4/5 bit and shank department supervisor dorsiflexion and plantar flexion. PSYCH: Alert. Oriented to person, place, and time. Objective Data Vital Signs Vital Signs: Vital Signs - 24 hr 11/15/22 14:00 11/15/22 16:00 11/15/22 17:48 Temperature 97.6 F Pulse Rate 64 59 L 80 Respiratory Rate 16 Blood Pressure 123/60 Pulse Oximetry 100 Oxygen Delivery 11/15/22 19:46 11/15/22 20:40 11/15/22 20:30 Temperature 98.2 F Pulse Rate 68 68 Respiratory Rate 20 Blood Pressure 135/64 Pulse Oximetry 97 Oxygen Delivery
[2022-11-16] MEDS: INSULIN ASPART (*BKC) 100 UNITS/ML SUB-Q (12:30)
[2022-11-16] MEDS: metFORMIN HCL 500 MG TABLET 1000 MG PO (17:01)
[2022-11-16 17:07] LABS: Glucose Point of Care 115 mg/dl (65-105)
[2022-11-16] MEDS: FINASTERIDE 5 MG TABLET PO (20:00)
[2022-11-16] MEDS: THERAPEUTIC MULTIVITAMINS/MINERALS TAB (*BKC) 1 TABLET PO (20:00)
[2022-11-17] VITALS (15 sets, daily range): BP systolic 144–166; BP diastolic 64–76; PULSE 68–104; RESP 16–18; TEMP 36.5–36.7; O2SAT 98–100
[2022-11-17] MEDS: AMPICILLIN 2 GM/NS 100 ML 2 GM/100 ML BAG IVPB ×6 (00:36→20:47)
[2022-11-17] MEDS: cefTRIAXone 2 GM/NS 100 ML 2 GM/100 ML BAG IVPB ×2 (01:20→15:26)
[2022-11-17 03:02] LABS: Hemoglobin 10.9 g/dL (14.0-18.0); Mean Corpuscular HGB Conc 34.1 g/dl (32-36); Mean Corpuscular Hemoglobin 28.4 pg (26-34); Mean Corpuscular Volume 83.3 fl (80-100); Mean Platelet Volume 11.2 fl (7.4-10.4); Platelet Count Result 169 k/mm3 (150-375); Red Blood Count 3.84 M/mm3 (4.6-6.20); Red Cell Distribution Width 14.2 % (11.5-14.5); White Blood Count 7.2 K/mm3 (4.5-10.0)
[2022-11-17 03:07] LABS: Anion Gap 3 mmol/L (8-16); Blood Urea Nitrogen 12 mg/dL (9-20); Carbon Dioxide 27 mmol/L (22-30); Chloride 105 mmol/L (98-107); Estimated CRCL calculation 67 ml/min; Estimated Glomerular Filt Rate > 60; Glucose 110 mg/dL (65-110); Potassium 3.3 mmol/L (3.4-5.0); Sodium 135 mmol/L (137-145)
[2022-11-17 03:55] LABS: Vancomycin Trough 10.9 ug/mL (10.0-20.0)
[2022-11-17] MEDS: SODIUM CHLOR 3% 15 ML NEB (RESPIRATORY THERAPY) 6 ML INHALATION (04:55)
[2022-11-17 08:12] LABS: Glucose Point of Care 145 mg/dl (65-105)
[2022-11-17] MEDS: metFORMIN HCL 500 MG TABLET 1000 MG PO ×2 (08:58→18:26)
[2022-11-17] MEDS: POTASSIUM CHLORIDE 20 MEQ ER TABLET 40 MEQ PO (08:58)
[2022-11-17] MEDS: METOPROLOL TARTRATE 50 MG TAB PO ×2 (08:59→20:46)
[2022-11-17] MEDS: TAMSULOSIN HCL 0.4 MG CAPSULE PO (08:59)
[2022-11-17] MEDS: CHOLECALCIFEROL 1,000 UNITS TABLET 5000 UNITS PO (08:59)
[2022-11-17] MEDS: FLUTICASONE PROPIONATE 0.05% NA SPR 16 GM BTL (*BKC) 2 SPRAY NASAL (08:59)
[2022-11-17] MEDS: ATORVASTATIN 40 MG TABLET PO (08:59)
--- NOTE | 2022-11-17 11:30 | WPDNEUROPN ---
Subjective Date/time seen: 11/17/22 11:30 Interval history: 82 years old with history of hypertension, hyperlipidemia, DVT, with IVC filter, on Coumadin transferred to the hospital for from rehab for change in mental status along with the headache and fever, initially seen by Dr. Hendricks, her notes reviewed ,patient is being treated for the possibility of meningitis encephalitis, INR is still above normal range ,spinal tap itself is at present not done but empiric treatment with the acyclovir and antibiotic has already been started, on examination today he is awake alert he recognized this particular physician as well I have seen him previously, the and the son in the room he followed the instructions fairly well and there is no changes in the neurological status treatment is being continued as such is still the INR is above the normal range and spinal fluid studies have not been carried out. Treatment is being carried out as such Objective Data Vital Signs Vital Signs: Vital Signs - 24 hr 11/16/22 12:00 11/16/22 13:19 11/16/22 14:21 Temperature 36.9 C Pulse Rate 68 75 Respiratory Rate 18 Blood Pressure 146/55 H Pulse Oximetry 100 Oxygen Delivery Room Air 11/16/22 16:00 11/16/22 19:20 11/16/22 20:00 Temperature 36.6 C Pulse Rate 71 77 88 Respiratory Rate 16 Blood Pressure 138/62 Pulse Oximetry 98 Oxygen Delivery 11/16/22 20:57 11/16/22 20:00 11/16/22 20:00 Temperature Pulse Rate 80 80 Respiratory Rate 16 Blood Pressure Pulse Oximetry 98 Oxygen Delivery CPAP CPAP 11/17/22 00:00 11/17/22 04:00 11/17/22 04:55 Temperature Pulse Rate 80 104 H Respiratory Rate 18 Blood Pressure Pulse Oximetry Oxygen Delivery 11/17/22 05:03 11/17/22 05:13 11/17/22 08:59 Temperature 36.5 C Pulse Rate 96 78 Respiratory Rate 18 16 Blood Pressure 147/73 H Pulse Oximetry 99 Oxygen Delivery 11/17/22 09:03 Temperature Pulse Rate 78 Respiratory Rate 16 Blood Pressure 144/64 H Pulse Oximetry 99 Oxygen Delivery Intake/Output Intake/Output: Intake & Output 11/14/22 11/15/22 11/16/22 11/17/22 23:59 23:59 23:59 23:59 Intake Total 1000 2667 1892 664 Output Total 20245 525 Balance 1000 642 867 139 Meds/Results Medications: Active Medications Generic Name Dose Route Start Last Admin Trade Name Freq PRN Reason Stop Dose Admin Acetaminophen 650 mg 11/14/22 19:05 Acetaminophen 325 Mg Tablet PO Q4H PRN Mild Pain (1-3) or Fever Atorvastatin Calcium 40 mg 11/17/22 09:00 11/17/22 08:59 Atorvastatin 40 Mg Tablet PO 40 mg DAILY ARNULFO Administration Dextrose 12.5 gm 11/16/22 12:15 Dextrose 50% 25 Gm/50 Ml Syringe IV PUSH PRN PRN Hypoglycemia Protocol Diphenhydramine HCl 50 mg 11/15/22 12:23 Diphenhydramine Hcl Inj 50 Mg/Ml Vial IV PUSH Q4H PRN Itching Finasteride 5 mg 11/15/22 21:00 11/16/22 20:00 Finasteride 5 Mg Tablet PO 5 mg HS ARNULFO Administration Fluticasone Propionate 2 spray 11/15/22 09:00 11/17/22 08:59 Fluticasone Propionate 0.05% Na Spr 16 Gm Btl (*Bkc) NASAL 2 spray DAILY ARNULFO Administration Glucagon 1 mg 11/16/22 12:15 Glucagon For Inj 1 Mg Vial IM PRN PRN Hypoglycemia Protocol Glucose 15 gm 11/16/22 12:15 Glucose Oral Gel 15 Gm Of Glucse In 37.5 Gm Tube PO PRN PRN Hypoglycemia Protocol Ceftriaxone Sodium 2 gm in 100 mls @ 200 mls/hr 11/15/22 14:00 11/17/22 01:50 Rocephin 2 Gm/Ns 100 Ml IVPB Infused Q12H ARNULFO Infusion Acyclovir Sodium 700 mg/ 114 mls @ 266 mls/hr 11/15/22 22:00 11/17/22 04:40 Dextrose IVPB Infused Q8HR ARNULFO Infusion Ampicillin Sodium 2 gm in 100 mls @ 200 mls/hr 11/15/22 20:00 11/17/22 08:58 Ampicillin 2 Gm/Ns 100 Ml IVPB 200 mls/hr Q4H ARNULFO Administration Dextrose 1,000 mls @ 100 mls/hr 11/16/22 12:15 Dextrose 5% 1,000 Ml IVPB PRN PRN
[2022-11-17 11:53] LABS: Glucose Point of Care 150 mg/dl (65-105)
--- NOTE | 2022-11-17 12:50 | PM.IMPN ---
Progress Note: A&P Assessment and Plan (1) Encephalopathy: Code(s): G93.40 - Encephalopathy, unspecified Status: Acute Assessment and Plan: Etiology unclear: Drug vs infection. TIA or seizure much less likely. 11/16/22: Dramatic improvement on acyclovir, vancomycin, ceftriaxone, ampicillin. Discussed with patient and family at bedside. 11/16/22: INR 2.6 is too high to perform LP. Discussed possible switch to Eliquis post procedure. 11/17/2022: Change in MS likely hospital delirium vs drug side effect. No new focal findings. D/w son at bedside sitter, familiar faces, maintaining sensory input. Discussed that LP may help clarify whether to continue antibx and may still be useful. INR 11/18/22. (2) Hyponatremia: Code(s): E87.1 - Hypo-osmolality and hyponatremia Status: Acute Assessment and Plan: 11/14/22: 129, 11/16/22: 132, 11/17/22 135 with K 3.3 (PO KCL ordered) Continue to hold furosemide (3) Right hemiplegia: Code(s): G81.91 - Hemiplegia, unspecified affecting right dominant side Status: Acute Assessment and Plan: PT/OT (4) DVT, bilateral lower limbs: Code(s): I82.403 - Acute embolism and thrombosis of unspecified deep veins of lower extremity, bilateral Status: Acute Assessment and Plan: Warfarin on hold for possible LP (5) Obstructive sleep apnea: Code(s): G47.33 - Obstructive sleep apnea (adult) (pediatric) Status: Acute Assessment and Plan: Continue CPAP (6) Diabetes: Qualifiers: Diabetes mellitus type: type 2 Diabetes mellitus group home insulin use: without long wall mining machine tender use Diabetes mellitus complication status: without complication Qualified Code(s): E11.9 - Type 2 diabetes mellitus without complications Code(s): E11.9 - Type 2 diabetes mellitus without complications Status: Acute Assessment and Plan: 11/16/22: Resumed metformin and initiated SSI. (7) Hypertension: Qualifiers: Hypertension type: primary hypertension Qualified Code(s): I10 - Essential (primary) hypertension Code(s): I10 - Essential (primary) hypertension Status: Acute Assessment and Plan: Monitor BP off furosemide 11/16/22 controlled (8) Presence of IVC filter: Code(s): Z95.828 - Presence of other vascular implants and grafts Status: Acute Assessment and Plan: Continue to monitor (9) Lymphedema: Code(s): I89.0 - Lymphedema, not elsewhere classified Status: Acute Assessment and Plan: Compression stockings to LE's (10) BPH (benign prostatic hyperplasia): Qualifiers: Lower urinary tract symptom presence: symptoms absent Qualified Code(s): N40.0 - Benign prostatic hyperplasia without lower urinary tract symptoms Code(s): N40.0 - Benign prostatic hyperplasia without lower urinary tract symptoms Status: Acute Assessment and Plan: Continue tamsulosin Subjective Date/time seen: 11/17/22 12:50 Interval history: 11/17/2022: Overnight confusion and restlessness that not sleep at all. Still a bit confused today with visual hallucinations. But not agitated. Did pull out IV during the night. But still a very good breakfast and lunch. Converses normally with his family except thinks they have other people in the room with him. Review of Systems Review of Systems: All systems reviewed & are unremarkable except as noted in HPI and below Exam Narrative: HEENT: EOMI, PERRL, sclerae nonicteric, pharyngeal mucosa pink and intact NECK: No JVD, adenopathy, or thyromegaly. Supple. CHEST: Clear to auscultation. Normal effort. HEART: NL S1/S2, regular, no murmur ABDOMEN: BS+, soft, nontender, no mass, no bruits EXTREMITIES: No cyanosis, edema, or clubbing NEUROLOGIC: CN intact and symmetric to inspection. DTRs intact at biceps triceps knees, trace at ankles, Babinski's downgoing. MUSCULOSKELETAL: Tone and strength symmetric 4
[2022-11-17 18:43] LABS: Glucose Point of Care 128 mg/dl (65-105)
[2022-11-17] MEDS: FINASTERIDE 5 MG TABLET PO (20:46)
[2022-11-17] MEDS: THERAPEUTIC MULTIVITAMINS/MINERALS TAB (*BKC) 1 TABLET PO (20:46)
[2022-11-17 20:54] LABS: Glucose Point of Care 183 mg/dl (65-105)
[2022-11-18] VITALS (8 sets, daily range): BP systolic 121–166; BP diastolic 59–63; PULSE 62–82; RESP 14–20; TEMP 36.7–37.1; O2SAT 96–100
[2022-11-18] MEDS: AMPICILLIN 2 GM/NS 100 ML 2 GM/100 ML BAG IVPB ×6 (00:03→21:09)
[2022-11-18] MEDS: cefTRIAXone 2 GM/NS 100 ML 2 GM/100 ML BAG IVPB ×2 (01:12→13:46)
[2022-11-18] MEDS: SODIUM CHLORIDE 0.9% IV 250 ML 10 ML (04:06)
[2022-11-18] MEDS: SODIUM CHLOR 3% 15 ML NEB (RESPIRATORY THERAPY) 6 ML INHALATION (05:48)
[2022-11-18 06:04] LABS: Hematocrit 31.4 % (42.0-52.0); Hemoglobin 10.5 g/dL (14.0-18.0); Mean Corpuscular HGB Conc 33.4 g/dl (32-36); Mean Corpuscular Hemoglobin 28.8 pg (26-34); Mean Platelet Volume 11.1 fl (7.4-10.4); Platelet Count Result 161 k/mm3 (150-375); Red Blood Count 3.65 M/mm3 (4.6-6.20); Red Cell Distribution Width 14.4 % (11.5-14.5); White Blood Count 6.9 K/mm3 (4.5-10.0)
[2022-11-18 06:08] LABS: INR 1.9; Prothrombin Time 23.4 Seconds (11.1-14.7)
[2022-11-18 06:10] LABS: Anion Gap 3 mmol/L (8-16); Blood Urea Nitrogen 10 mg/dL (9-20); Calcium 8.7 mg/dL (8.4-10.2); Carbon Dioxide 26 mmol/L (22-30); Chloride 106 mmol/L (98-107); Estimated CRCL calculation 67 ml/min; Estimated Glomerular Filt Rate > 60; Glucose 102 mg/dL (65-110); Potassium 3.5 mmol/L (3.4-5.0); Sodium 135 mmol/L (137-145)
--- NOTE | 2022-11-18 06:24 | PCRCNOTE ---
Unable to obtain sputum sample this morning. RN aware. Specimen trap at bedside.
[2022-11-18 08:25] LABS: Glucose Point of Care 127 mg/dl (65-105)
[2022-11-18] MEDS: metFORMIN HCL 500 MG TABLET 1000 MG PO ×2 (09:50→16:11)
[2022-11-18] MEDS: ATORVASTATIN 40 MG TABLET PO (09:50)
[2022-11-18] MEDS: TAMSULOSIN HCL 0.4 MG CAPSULE PO (09:50)
[2022-11-18] MEDS: CHOLECALCIFEROL 1,000 UNITS TABLET 5000 UNITS PO (09:50)
[2022-11-18] MEDS: METOPROLOL TARTRATE 50 MG TAB PO ×2 (09:51→21:10)
[2022-11-18] MEDS: FLUTICASONE PROPIONATE 0.05% NA SPR 16 GM BTL (*BKC) 2 SPRAY NASAL (09:51)
--- NOTE | 2022-11-18 10:41 | WPDNEUROPN ---
Progress Note: A&P Assessment and Plan (1) Acute metabolic encephalopathy: Code(s): G93.41 - Metabolic encephalopathy Status: Acute (2) SIRS (systemic inflammatory response syndrome): Code(s): R65.10 - Systemic inflammatory response syndrome (SIRS) of non-infectious origin without acute organ dysfunction Status: Acute (3) Carotid arterial disease: Code(s): I77.9 - Disorder of arteries and arterioles, unspecified Status: Acute (4) Afib: Qualifiers: Atrial fibrillation type: unspecified chronic Qualified Code(s): I48.20 - Chronic atrial fibrillation, unspecified Code(s): I48.91 - Unspecified atrial fibrillation Status: Acute Plan Jerrod Miles is a 82 year old male with a history of HTN, HLD, DVT with IVC filter, on warfarin presenting from rehab for altered mental status. Also with headache and fever. There is no obvious cause of the fever. Therefore, will need to evaluate for meningitis/encephalitis. MRI brain negative for acute stroke. Mental status has improved since admission. - Continue empiric acyclovir and antibiotics (ampicillin, vancomycin, ceftriaxone) - LP with CSF studies (please include HSV PCR) when able Subjective Date/time seen: 11/18/22 10:41 Interval history: Jerrod Miles is a 82 year old male with a history of HTN, HLD, DVT with IVC filter, on warfarin presenting from rehab for altered mental status. Patient was recently admitted to [place] for UTI and was treated with Levaquin. While at rehab, he started complaining of headache on the day of presentation and was notably confused. He was easily distracted and appeared to have difficulty with coordination. CT head was unrevealing. Lab work was significant for hyponatremia of 129, and UA was unrevealing. INR is therapeutic. Patient did develop a fever during admission, up to 101.8. Blood cultures were obtained and are negative so far. MRI brain has been done, the report is pending. Patient's INR is 1.9 today so he cannot have LP done yet. Warfarin being held by hospitalist team. Currently on empiric antibiotics and acyclovir. Overall doing better. More alert. Became confused and was hallucinating two nights ago. Review of Systems Review of Systems: All systems reviewed & are unremarkable except as noted in HPI and below Exam Const: General: comfortable and no acute distress HENMT: Mouth: Yes moist mucous membranes Eyes: Other: Pupils pin point bilaterally Resp: Effort & Inspection: normal respiratory effort Skin: General skin exam: normal color Neuro: Other: AOx3, Pupils equal and reactive bilaterally, EOMI, face symmetric, facial sensation intact, tongue protrudes midline, palate midline. Shoulder shrug normal. Strength 5/5 throughout. Sensation intact throughout, FNF normal bilaterally. Language comprehension and fluency intact. Gait deferred. Extrem: General: normal to inspection Psych: Mental Status: mental status grossly normal Affect: normal affect Objective Data Vital Signs Vital Signs: Vital Signs - 24 hr 11/17/22 12:00 11/17/22 14:00 11/17/22 17:45 Temperature 36.7 C Pulse Rate 73 68 Respiratory Rate 18 Blood Pressure 166/70 H Pulse Oximetry 100 Oxygen Delivery 11/17/22 18:37 11/17/22 20:46 11/17/22 21:28 Temperature 36.6 C Pulse Rate 76 70 Respiratory Rate 18 Blood Pressure 146/66 H 160/76 H Pulse Oximetry 98 Oxygen Delivery 11/17/22 20:00 11/17/22 23:45 11/18/22 02:35 Temperature Pulse Rate 70 Respiratory Rate 18 Blood Pressure Pulse Oximetry 98 Oxygen Delivery Room Air CPAP CPAP 11/18/22 05:49 11/18/22 05:57 11/18/22 06:23 Temperature 36.7 C Pulse Rate 62 Respiratory Rate 16 18 16 Blood Pressure 166/59 H Pulse Oximetry 100 Oxygen Delivery 11/18/22 09:51 Temperature Pulse Rate 64 Respiratory Rate Blood Pressure Pulse Oximetry Oxygen Delivery Inta
[2022-11-18 11:54] LABS: Glucose Point of Care 125 mg/dl (65-105)
[2022-11-18] MEDS: LIDOCAINE HCL 1% PF INJ 5 ML VIAL INFILTRATE (12:00)
[2022-11-18 12:06] LABS: Partial Thromboplastin Time 33.6 SECONDS (22.3-36.8)
--- NOTE | 2022-11-18 13:00 | PM.IMPN ---
Progress Note: A&P Assessment and Plan (1) Acute metabolic encephalopathy: Code(s): G93.41 - Metabolic encephalopathy Status: Acute Assessment and Plan: Presented to the ED from rehab for acute confusion and encephalopathy Recently treated for UTI with levaquin which has been completed CT of the brain no acute finding CTA of the brain 9% of the right and 0% of the left, no intracranial findings MRI of the brain old blood products in left thalamus and posterior limb left internal capsule UA appears non infectious Notable fever, tachycardia, and tachypnea WBC stable 6.9 Neuro consulted thank you for your help LP ordered, INR still slightly elevated at 1.9 Continue to trend INR Continue Acyclovir, vanco, ampicillin, and ceftriaxone Await LP for further direction Notable episode of confusion, most likely related to delirium (2) Presence of IVC filter: Code(s): Z95.828 - Presence of other vascular implants and grafts Status: Acute Assessment and Plan: Present since [facility] noted about 2 years ago Noted to still have multiple clots in the bilateral lower extremities Coumadin on hold for now (3) Hyponatremia: Code(s): E87.1 - Hypo-osmolality and hyponatremia Status: Acute Assessment and Plan: Na 129 upon arrival Currently 135 Could be contributing to the encephalopathy Continue IV fluids for now Continue to trend (4) Obstructive sleep apnea: Code(s): G47.33 - Obstructive sleep apnea (adult) (pediatric) Status: Acute Assessment and Plan: Continue home CPAP with home setting (5) Diabetes: Qualifiers: Diabetes mellitus complication status: without complication Diabetes mellitus terminal carman insulin use: without chcf use Diabetes mellitus type: type 2 Qualified Code(s): E11.9 - Type 2 diabetes mellitus without complications Code(s): E11.9 - Type 2 diabetes mellitus without complications Status: Acute Assessment and Plan: Current glucose 102 accu cheks AC/HS ISS Continue to trend glucose stable Adjust therapy as indicated (6) Hypertension: Qualifiers: Hypertension type: primary hypertension Qualified Code(s): I10 - Essential (primary) hypertension Code(s): I10 - Essential (primary) hypertension Status: Acute Assessment and Plan: BP is 166/59 Continue home metoprolol Lasix could be restarted trend BP adjust therapy as indicated (7) BPH (benign prostatic hyperplasia): Qualifiers: Lower urinary tract symptom presence: symptoms absent Qualified Code(s): N40.0 - Benign prostatic hyperplasia without lower urinary tract symptoms Code(s): N40.0 - Benign prostatic hyperplasia without lower urinary tract symptoms Status: Acute Assessment and Plan: Continue home tamsulosin trend urine output Stable (8) SIRS (systemic inflammatory response syndrome): Code(s): R65.10 - Systemic inflammatory response syndrome (SIRS) of non-infectious origin without acute organ dysfunction Status: Acute Assessment and Plan: Fevers noted 101.4, tachycardia 100-115, tachypnea 20s blood cultures NGTD UA appears non infectious IV fluids continued Trend vital sign (9) Afib: Qualifiers: Atrial fibrillation type: unspecified chronic Qualified Code(s): I48.20 - Chronic atrial fibrillation, unspecified Code(s): I48.91 - Unspecified atrial fibrillation Status: Acute Assessment and Plan: Currently in afib Rate is controlled Continue metoprolol Hold Coumadin for now to get LP when INR is below 1.7 Tele monitor continued Time Spent With Patient Time: 48 minutes Time with patient: Greater than 35 minutes Subjective Date/time seen: 11/18/22 13
--- NOTE | 2022-11-18 13:00 | P.PNIM_ITS ---
Progress Note: A&P Assessment and Plan (1) Acute metabolic encephalopathy: Code(s): G93.41 - Metabolic encephalopathy Status: Acute Assessment and Plan: * Presented to the ED from rehab for acute confusion and encephalopathy * Recently treated for UTI with levaquin which has been completed * CT of the brain no acute finding * CTA of the brain 9% of the right and 0% of the left, no intracranial findings * MRI of the brain old blood products in left thalamus and posterior limb left internal capsule * UA appears non infectious * Notable fever, tachycardia, and tachypnea * WBC stable 6.9 * Neuro consulted thank you for your help * LP ordered, INR still slightly elevated at 1.9 * Continue to trend INR * Continue Acyclovir, vanco, ampicillin, and ceftriaxone * Await LP for further direction * Notable episode of confusion, most likely related to delirium (2) Presence of IVC filter: Code(s): Z95.828 - Presence of other vascular implants and grafts Status: Acute Assessment and Plan: * Present since ICH noted about 2 years ago * Noted to still have multiple clots in the bilateral lower extremities * Coumadin on hold for now (3) Hyponatremia: Code(s): E87.1 - Hypo-osmolality and hyponatremia Status: Acute Assessment and Plan: * Na 129 upon arrival * Currently 135 * Could be contributing to the encephalopathy * Continue IV fluids for now * Continue to trend (4) Obstructive sleep apnea: Code(s): G47.33 - Obstructive sleep apnea (adult) (pediatric) Status: Acute Assessment and Plan: * Continue home CPAP with home setting (5) Diabetes: Qualifiers: Diabetes mellitus complication status: without complication Diabetes mellitus continuous churn buttermaker insulin use: without continuous churn buttermaker use Diabetes mellitus type: type 2 Qualified Code(s): E11.9 - Type 2 diabetes mellitus without complications Code(s): E11.9 - Type 2 diabetes mellitus without complications Status: Acute Assessment and Plan: * Current glucose 102 * accu cheks AC/HS * ISS * Continue to trend glucose * stable * Adjust therapy as indicated (6) Hypertension: Qualifiers: Hypertension type: primary hypertension Qualified Code(s): I10 - Essential (primary) hypertension Code(s): I10 - Essential (primary) hypertension Status: Acute Assessment and Plan: * BP is 166/59 * Continue home metoprolol * Lasix could be restarted * trend BP * adjust therapy as indicated (7) BPH (benign prostatic hyperplasia): Qualifiers: Lower urinary tract symptom presence: symptoms absent Qualified Code(s): N40.0 - Benign prostatic hyperplasia without lower urinary tract symptoms Code(s): N40.0 - Benign prostatic hyperplasia without lower urinary tract symptoms Status: Acute Assessment and Plan: * Continue home tamsulosin * trend urine output * Stable (8) SIRS (systemic inflammatory response syndrome): Code(s): R65.10 - Systemic inflammatory response syndrome (SIRS) of non-infectious origin without acute organ dysfunction Status: Acute Assessment and Plan: * Fevers noted 101.4, tachycardia 100-115, tachypnea 20s * blood cultures NGTD
[2022-11-18] MEDS: CENTRAL LINE FLUSH 10 ML IV PUSH ×2 (13:16→21:10)
[2022-11-18 16:52] LABS: Vancomycin Trough 17.2 ug/mL (10.0-20.0)
[2022-11-18 17:18] LABS: Glucose Point of Care 102 mg/dl (65-105)
[2022-11-18] MEDS: FINASTERIDE 5 MG TABLET PO (21:10)
[2022-11-18] MEDS: THERAPEUTIC MULTIVITAMINS/MINERALS TAB (*BKC) 1 TABLET PO (21:11)
[2022-11-18 22:23] LABS: Glucose Point of Care 153 mg/dl (65-105)
[2022-11-19] MEDS: AMPICILLIN 2 GM/NS 100 ML 2 GM/100 ML BAG IVPB ×4 (01:24→12:52)
[2022-11-19] MEDS: cefTRIAXone 2 GM/NS 100 ML 2 GM/100 ML BAG IVPB ×2 (01:25→14:19)
[2022-11-19] MEDS: CENTRAL LINE FLUSH 20 ML IV PUSH (04:44)
[2022-11-19 04:54] LABS: Basophils Percent Auto 0.6 % (0.2-1.2); Eosinophils Absolute Auto 0.4 K/mm3 (0-0.3); Eosinophils Percent Auto 7.1 % (0-4.4); Hematocrit 29.2 % (42.0-52.0); Hemoglobin 9.6 g/dL (14.0-18.0); Immature Granulocyte Absolute 0.01 K/mm3 (0.00-0.031); Immature Granulocyte Percent A 0.2 % (0-0.5); Lymphocytes Absolute Auto 1.56 K/mm3 (0.9-3.2); Lymphocytes Percent Auto 25.1 % (18.3-44.2); Mean Corpuscular HGB Conc 32.9 g/dl (32-36); Mean Corpuscular Hemoglobin 28.5 pg (26-34); Mean Corpuscular Volume 86.6 fl (80-100); Mean Platelet Volume 11.1 fl (7.4-10.4); Monocytes Absolute Auto 0.7 K/mm3 (0.1-0.6); Monocytes Percent Auto 10.5 % (2.6-8.5); Neutrophils Absolute Auto 3.5 K/mm3 (1.3-6.7); Neutrophils Percent Auto 56.5 % (45.5-73.1); Platelet Count Result 144 k/mm3 (150-375); Red Blood Count 3.37 M/mm3 (4.6-6.20); Red Cell Distribution Width 14.4 % (11.5-14.5); White Blood Count 6.2 K/mm3 (4.5-10.0)
[2022-11-19 05:06] LABS: INR 1.9; Prothrombin Time 22.8 Seconds (11.1-14.7)
[2022-11-19 05:07] LABS: Alanine Aminotransferase 18 U/L (6-50); Albumin Level 2.6 g/dL (3.5-5.1); Alkaline Phosphatase 38 U/L (38-126); Anion Gap 3 mmol/L (8-16); Aspartate Amino Transferase 21 U/L (17-59); Bilirubin,Total 0.3 mg/dL (0.2-1.3); Blood Urea Nitrogen 9 mg/dL (9-20); Calcium 8.6 mg/dL (8.4-10.2); Carbon Dioxide 27 mmol/L (22-30); Chloride 108 mmol/L (98-107); Estimated CRCL calculation 67 ml/min; Estimated Glomerular Filt Rate > 60; Glucose 97 mg/dL (65-110); Magnesium 1.7 mg/dL (1.6-2.3); Potassium 3.3 mmol/L (3.4-5.0); Sodium 138 mmol/L (137-145)
[2022-11-19 05:18] VITALS: BP 122/49; PULSE 65; RESP 18; TEMP 36.8; O2SAT 95
[2022-11-19] MEDS: CENTRAL LINE FLUSH 10 ML IV PUSH ×2 (05:19→14:20)
--- NOTE | 2022-11-19 06:31 | P.PNIM_ITS ---
Progress Note: A&P Assessment and Plan (1) Acute metabolic encephalopathy: Code(s): G93.41 - Metabolic encephalopathy Status: Acute Assessment and Plan: * Presented to the ED from rehab for acute confusion and encephalopathy * Recently treated for UTI with levaquin which has been completed * CT of the brain no acute finding * CTA of the brain 9% of the right and 0% of the left, no intracranial findings * MRI of the brain old blood products in left thalamus and posterior limb left internal capsule * UA appears non infectious * Notable fever, tachycardia, and tachypnea * WBC stable 6.9 * Neuro consulted thank you for your help * LP ordered, INR still slightly elevated at 1.9, might need to defer since treatment has been on going for 5 days * Continue to trend INR * Continue Acyclovir, vanco, ampicillin, and ceftriaxone, convert to PO * Notable episode of confusion, most likely related to delirium, resolved (2) Presence of IVC filter: Code(s): Z95.828 - Presence of other vascular implants and grafts Status: Acute Assessment and Plan: * Present since ICH noted about 2 years ago * Noted to still have multiple clots in the bilateral lower extremities * Coumadin on hold for now, can most likely restart (3) Hyponatremia: Code(s): E87.1 - Hypo-osmolality and hyponatremia Status: Acute Assessment and Plan: * Na 129 upon arrival * Currently 138 * Could be contributing to the encephalopathy * Continue IV fluids for now * Continue to trend (4) Obstructive sleep apnea: Code(s): G47.33 - Obstructive sleep apnea (adult) (pediatric) Status: Acute Assessment and Plan: * Continue home CPAP with home setting (5) Diabetes: Qualifiers: Diabetes mellitus type: type 2 Diabetes mellitus equipment operator intermodal yard insulin use: without equipment operator intermodal yard use Diabetes mellitus complication status: without com plication Qualified Code(s): E11.9 - Type 2 diabetes mellitus without complications Code(s): E11.9 - Type 2 diabetes mellitus without complications Status: Acute Assessment and Plan: * Current glucose 97 * accu cheks AC/HS * ISS * Continue to trend glucose * stable * Adjust therapy as indicated (6) Hypertension: Qualifiers: Hypertension type: primary hypertension Qualified Code(s): I10 - Essential (primary) hypertension Code(s): I10 - Essential (primary) hypertension Status: Acute Assessment and Plan: * BP is 122/49 * Continue home metoprolol * Lasix could be restarted * trend BP * adjust therapy as indicated (7) BPH (benign prostatic hyperplasia): Qualifiers: Lower urinary tract symptom presence: symptoms absent Qualified Code(s): N40.0 - Benign prostatic hyperplasia without lower urinary tract symptoms Code(s): N40.0 - Benign prostatic hyperplasia without lower urinary tract symptoms Status: Acute Assessment and Plan: * Continue home tamsulosin * trend urine output * Stable (8) SIRS (systemic inflammatory response syndrome): Code(s): R65.10 - Systemic inflammatory response syndrome (SIRS) of non-infectious origin without acute organ dysfunction Status: Acute Assessment and Plan: * Fever
--- NOTE | 2022-11-19 06:31 | PM.IMPN ---
Progress Note: A&P Assessment and Plan (1) Acute metabolic encephalopathy: Code(s): G93.41 - Metabolic encephalopathy Status: Acute Assessment and Plan: Presented to the ED from rehab for acute confusion and encephalopathy Recently treated for UTI with levaquin which has been completed CT of the brain no acute finding CTA of the brain 9% of the right and 0% of the left, no intracranial findings MRI of the brain old blood products in left thalamus and posterior limb left internal capsule UA appears non infectious Notable fever, tachycardia, and tachypnea WBC stable 6.9 Neuro consulted thank you for your help LP ordered, INR still slightly elevated at 1.9, might need to defer since treatment has been on going for 5 days Continue to trend INR Continue Acyclovir, vanco, ampicillin, and ceftriaxone, convert to PO Notable episode of confusion, most likely related to delirium, resolved (2) Presence of IVC filter: Code(s): Z95.828 - Presence of other vascular implants and grafts Status: Acute Assessment and Plan: Present since ICH noted about 2 years ago Noted to still have multiple clots in the bilateral lower extremities Coumadin on hold for now, can most likely restart (3) Hyponatremia: Code(s): E87.1 - Hypo-osmolality and hyponatremia Status: Acute Assessment and Plan: Na 129 upon arrival Currently 138 Could be contributing to the encephalopathy Continue IV fluids for now Continue to trend (4) Obstructive sleep apnea: Code(s): G47.33 - Obstructive sleep apnea (adult) (pediatric) Status: Acute Assessment and Plan: Continue home CPAP with home setting (5) Diabetes: Qualifiers: Diabetes mellitus type: type 2 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-term use Diabetes mellitus complication status: without complication Qualified Code(s): E11.9 - Type 2 diabetes mellitus without complications Code(s): E11.9 - Type 2 diabetes mellitus without complications Status: Acute Assessment and Plan: Current glucose 97 accu cheks AC/HS ISS Continue to trend glucose stable Adjust therapy as indicated (6) Hypertension: Qualifiers: Hypertension type: primary hypertension Qualified Code(s): I10 - Essential (primary) hypertension Code(s): I10 - Essential (primary) hypertension Status: Acute Assessment and Plan: BP is 122/49 Continue home metoprolol Lasix could be restarted trend BP adjust therapy as indicated (7) BPH (benign prostatic hyperplasia): Qualifiers: Lower urinary tract symptom presence: symptoms absent Qualified Code(s): N40.0 - Benign prostatic hyperplasia without lower urinary tract symptoms Code(s): N40.0 - Benign prostatic hyperplasia without lower urinary tract symptoms Status: Acute Assessment and Plan: Continue home tamsulosin trend urine output Stable (8) SIRS (systemic inflammatory response syndrome): Code(s): R65.10 - Systemic inflammatory response syndrome (SIRS) of non-infectious origin without acute organ dysfunction Status: Acute Assessment and Plan: Fevers noted 101.4, tachycardia 100-115, tachypnea 20s blood cultures NGTD UA appears non infectious IV fluids continued Trend vital sign Resolved (9) Afib: Qualifiers: Atrial fibrillation type: unspecified chronic Qualified Code(s): I48.20 - Chronic atrial fibrillation, unspecified Code(s): I48.91 - Unspecified atrial fibrillation Status: Acute Assessment and Plan: Currently in afib Rate is controlled Continue metoprolol Hold Coumadin for now to get LP when INR is below 1.7 Tele monitor continued Time Spent With Patient Time: 39 minutes
[2022-11-19 08:31] LABS: Glucose Point of Care 132 mg/dl (65-105)
[2022-11-19 09:09] LABS: CMV DNA Quant PCR IU/mL Not Detected; Cytomegalovirus DNA Quant PCR Not Detected log IU/mL; Cytomegalovirus DNA Source Serum
[2022-11-19] MEDS: metFORMIN HCL 500 MG TABLET 1000 MG PO (10:15)
[2022-11-19] MEDS: ATORVASTATIN 40 MG TABLET PO (10:15)
[2022-11-19] MEDS: CHOLECALCIFEROL 1,000 UNITS TABLET 5000 UNITS PO (10:15)
[2022-11-19 10:16] VITALS: PULSE 68
[2022-11-19] MEDS: METOPROLOL TARTRATE 50 MG TAB PO (10:16)
[2022-11-19] MEDS: TAMSULOSIN HCL 0.4 MG CAPSULE PO (10:16)
[2022-11-19] MEDS: FLUTICASONE PROPIONATE 0.05% NA SPR 16 GM BTL (*BKC) 2 SPRAY NASAL (10:16)
[2022-11-19] MEDS: MAGNESIUM SULF 2 GM/WATER 50ML 2 GM/50 ML BAG IVPB (10:17)
[2022-11-19 12:12] LABS: Glucose Point of Care 190 mg/dl (65-105)
[2022-11-19] MEDS: POTASSIUM CHLORIDE 20 MEQ ER TABLET 40 MEQ PO (12:53)
--- NOTE | 2022-11-19 13:00 | PM.DS ---
DS: Admitting Diagnosis Discharge Date 11/19/22 1300 Admitting Diagnosis acute metabolic encephalopathy DS: Discharge Diagnosis Discharge Diagnosis (1) Acute metabolic encephalopathy: Code(s): G93.41 - Metabolic encephalopathy Status: Acute Assessment and Plan: Presented to the ED from rehab for acute confusion and encephalopathy Recently treated for UTI with levaquin which has been completed CT of the brain no acute finding CTA of the brain 9% of the right and 0% of the left, no intracranial findings MRI of the brain old blood products in left thalamus and posterior limb left internal capsule UA appears non infectious Notable fever, tachycardia, and tachypnea WBC stable 6.9 Neuro consulted thank you for your help LP ordered, INR still slightly elevated at 1.9, might need to defer since treatment has been on going for 5 days Continue to trend INR Continue Acyclovir, vanco, ampicillin, and ceftriaxone, convert to PO Notable episode of confusion, most likely related to delirium, resolved (2) Presence of IVC filter: Code(s): Z95.828 - Presence of other vascular implants and grafts Status: Acute Assessment and Plan: Present since ICH noted about 2 years ago Noted to still have multiple clots in the bilateral lower extremities Coumadin on hold for now, can most likely restart (3) Hyponatremia: Code(s): E87.1 - Hypo-osmolality and hyponatremia Status: Acute Assessment and Plan: Na 129 upon arrival Currently 138 Could be contributing to the encephalopathy Continue IV fluids for now Continue to trend (4) Obstructive sleep apnea: Code(s): G47.33 - Obstructive sleep apnea (adult) (pediatric) Status: Acute Assessment and Plan: Continue home CPAP with home setting (5) Diabetes: Qualifiers: Diabetes mellitus complication status: without complication Diabetes mellitus terminal press operator insulin use: 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 Diabetes mellitus type: type 2 Qualified Code(s): E11.9 - Type 2 diabetes mellitus without complications Code(s): E11.9 - Type 2 diabetes mellitus without complications Status: Acute Assessment and Plan: Current glucose 97 accu cheks AC/HS ISS Continue to trend glucose stable Adjust therapy as indicated (6) Hypertension: Qualifiers: Hypertension type: primary hypertension Qualified Code(s): I10 - Essential (primary) hypertension Code(s): I10 - Essential (primary) hypertension Status: Acute Assessment and Plan: BP is 122/49 Continue home metoprolol Lasix could be restarted trend BP adjust therapy as indicated (7) BPH (benign prostatic hyperplasia): Qualifiers: Lower urinary tract symptom presence: symptoms absent Qualified Code(s): N40.0 - Benign prostatic hyperplasia without lower urinary tract symptoms Code(s): N40.0 - Benign prostatic hyperplasia without lower urinary tract symptoms Status: Acute Assessment and Plan: Continue home tamsulosin trend urine output Stable (8) SIRS (systemic inflammatory response syndrome): Code(s): R65.10 - Systemic inflammatory response syndrome (SIRS) of non-infectious origin without acute organ dysfunction Status: Acute Assessment and Plan: Fevers noted 101.4, tachycardia 100-115, tachypnea 20s blood cultures NGTD UA appears non infectious IV fluids continued Trend vital sign Resolved (9) Afib: Qualifiers: Atrial fibrillation type: unspecified chronic Qualified Code(s): I48.20 - Chronic atrial fibrillation, unspecified Code(s): I48.91 - Unspecified atrial fibrillation Status: Acute Assessment and Plan: Currently in afib Rate is controlled Continue metoprolol Hold Coumadin for no
--- NOTE | 2022-11-19 13:00 | P.DS_ITS ---
DS: Admitting Diagnosis Discharge Date 11/19/22 1300 Admitting Diagnosis acute metabolic encephalopathy DS: Discharge Diagnosis Discharge Diagnosis (1) Acute metabolic encephalopathy: Code(s): G93.41 - Metabolic encephalopathy Status: Acute Assessment and Plan: * Presented to the ED from rehab for acute confusion and encephalopathy * Recently treated for UTI with levaquin which has been completed * CT of the brain no acute finding * CTA of the brain 9% of the right and 0% of the left, no intracranial findings * MRI of the brain old blood products in left thalamus and posterior limb left internal capsule * UA appears non infectious * Notable fever, tachycardia, and tachypnea * WBC stable 6.9 * Neuro consulted thank you for your help * LP ordered, INR still slightly elevated at 1.9, might need to defer since treatment has been on going for 5 days * Continue to trend INR * Continue Acyclovir, vanco, ampicillin, and ceftriaxone, convert to PO * Notable episode of confusion, most likely related to delirium, resolved (2) Presence of IVC filter: Code(s): Z95.828 - Presence of other vascular implants and grafts Status: Acute Assessment and Plan: * Present since ICH noted about 2 years ago * Noted to still have multiple clots in the bilateral lower extremities * Coumadin on hold for now, can most likely restart (3) Hyponatremia: Code(s): E87.1 - Hypo-osmolality and hyponatremia Status: Acute Assessment and Plan: * Na 129 upon arrival * Currently 138 * Could be contributing to the encephalopathy * Continue IV fluids for now * Continue to trend (4) Obstructive sleep apnea: Code(s): G47.33 - Obstructive sleep apnea (adult) (pediatric) Status: Acute Assessment and Plan: * Continue home CPAP with home setting (5) Diabetes: Qualifiers: Diabetes mellitus complication status: without complication Diabetes mellitus senior living insulin use: without senior living use Diabetes mellitus type: type 2 Qualified Code(s): E11.9 - Type 2 diabetes mellitus without complications Code(s): E11.9 - Type 2 diabetes mellitus without complications Status: Acute Assessment and Plan: * Current glucose 97 * accu cheks AC/HS * ISS * Continue to trend glucose * stable * Adjust therapy as indicated (6) Hypertension: Qualifiers: Hypertension type: primary hypertension Qualified Code(s): I10 - Essential (primary) hypertension Code(s): I10 - Essential (primary) hypertension Status: Acute Assessment and Plan: * BP is 122/49 * Continue home metoprolol * Lasix could be restarted * trend BP * adjust therapy as indicated (7) BPH (benign prostatic hyperplasia): Qualifiers: Lower urinary tract symptom presence: symptoms absent Qualified Code(s): N40.0 - Benign prostatic hyperplasia without lower urinary tract symptoms Code(s): N40.0 - Benign prostatic hyperplasia without lower urinary tract symptoms Status: Acute Assessment and Plan: * Continue home tamsulosin * trend urine output * Stable (8) SIRS (systemic inflammatory response syndrome): Code(s): R65.10 - Systemic inflammatory response syn
[2022-11-19 14:00] VITALS: BP 141/50; PULSE 58; RESP 16; TEMP 36.8; O2SAT 99
[2022-11-19] MEDS: valACYclovir HCL 500 MG TABLET 1000 MG PO (14:20)
== END 2022-11-19 18:00 | disposition home or self-care (01) | DRG 98 ==
LOC: ANHED 19:11 → ANH2MED 20:43
PROVIDERS: Internal Medicine; Student in an Organized Health Care Education/Training Program; Admitting Provider Internal Medicine; Emergency Provider Physician Assistant; Visit Provider Nurse Practitioner
DX: G03.9 Meningitis, unspecified (principal); E87.1 Hypo-osmolality and hyponatremia; I48.20 Chronic atrial fibrillation, unspecified; R65.10 Systemic inflammatory response syndrome (SIRS) of non-infectious origin without acute organ dysfunction; I65.29 Occlusion and stenosis of unspecified carotid artery; I10 Essential (primary) hypertension; I89.0 Lymphedema, not elsewhere classified; E78.5 Hyperlipidemia, unspecified; E11.9 Type 2 diabetes mellitus without complications; N40.0 Benign prostatic hyperplasia without lower urinary tract symptoms; G47.33 Obstructive sleep apnea (adult) (pediatric); Z20.822 Contact with and (suspected) exposure to COVID-19; Z79.01 Long term (current) use of anticoagulants; Z95.828 Presence of other vascular implants and grafts; Z86.718 Personal history of other venous thrombosis and embolism
CPT/HCPCS: 36415; 36569; 70450; 70496; 70498; 70553; 71045; 80048; 80053; 80202; 81003; 82040; 82042; 82784; 82948; 83735; 83873; 83916; 84484; 85025; 85027; 85610; 85730; 87040; 87497; 87637; 93005; 94640; 96361; 96365; 96366; 96367; 96372; 96374; 96375; 97110; 97116; 97161; 97530; 97535; 99285; A9270; A9577; G0378; J0133; J0290; J0696; J1630; J1815; J2060; J2270; J3370; J3475; J7030; J7050; J7060; Q9967